=== PATIENT | female | born 1945 ===

== ENCOUNTER 2019-10-03 19:38 | Emergency (ER) | payer MEDICARE ==
[2019-10-03] MEDS ORDERED: HYDROcodone/Acetaminophen 10/325 mg Tablet ONE (20:11)
--- NOTE | 2019-10-03 21:44 | CT ---
CT FACIAL BONES WITH CORONAL AND SAGITTAL REFORMATIONS: Date: 10/03/19 HISTORY: Fall, facial pain. FINDINGS/IMPRESSION: The facial bones are intact. No temporomandibular dislocation is seen. There is mucosal disease in th e paranasal sinuses. POS: [facility]
== END 2019-10-03 21:18 | disposition home or self-care (01) ==
LOC: SCSER 19:38
DX: S00.81XA Abrasion of other part of head, initial encounter (principal); S40.811A Abrasion of right upper arm, initial encounter; S00.31XA Abrasion of nose, initial encounter; R05 Cough; M06.9 Rheumatoid arthritis, unspecified; I10 Essential (primary) hypertension; Z79.899 Other long term (current) drug therapy
CPT/HCPCS: 70486